=== PATIENT | female | born 1990 | race Caucasian/White ===

== ENCOUNTER 2020-12-30 08:24 | Emergency (ER) | payer OTHER ==
[2020-12-30 09:58] LABS: BASOPHIL 0.8 % (0-2); EOSINOPHIL 5.9 % (0-5); HGB 13.1 g/dl (12.5-16.0); LYMPHOCYTE 53.8 % (15-48); MCH 30.5 pg (25.0-31.0); MCHC 32.8 g/dL (32.0-36.0); MCV 93.2 fL (78.0-100.0); MONOCYTE 10.3 % (0-12); NRBC 0; PLT 189 K/uL (150-400); RBC 4.29 M/uL (4.20-5.40); RDW 12.6 % (11.5-14.0); WBC 5.1 K/uL (4.0-10.5)
[2020-12-30 10:37] LABS: ALBUMIN 3.7 g/dL (3.4-5.0); ALKALINE PHOSHATASE 37 U/L (46-116); ALT 19 U/L (14-59); AST 11 U/L (15-37); BILIRUBIN - TOTAL 0.6 mg/dL (0.2-1.0); BUN 14 mg/dL (7-18); BUN/CREAT RATIO (CALC) 20.3 RATIO; C-REACTIVE PROTEIN <0.20 mg/dL (<=0.90); CHLORIDE 106 mmol/L (98-107); CO2 (BICARBONATE) 26 mmol/L (21-32); CREATININE 0.69 mg/dL (0.51-0.95); GLOBULIN (CALCULATION) 3.5 g/dL; GLUCOSE 88 mg/dL (74-106); POTASSIUM 3.8 mmol/L (3.5-5.1); TOTAL PROTEIN 7.2 g/dL (6.4-8.2)
[2020-12-30] MEDS ORDERED: PREDNISONE20 MG PO (11:56)
[2020-12-30] MEDS ORDERED: PERCOCET 7.5/321 TAB PO (11:56)
== END 2020-12-30 12:16 | disposition home or self-care (01) ==
LOC: FER 08:24
PROVIDERS: Emergency Medicine
DX: M51.16 Intervertebral disc disorders with radiculopathy, lumbar region (principal); M47.26 Other spondylosis with radiculopathy, lumbar region
CPT/HCPCS: 36415; 72131; 80053; 84703; 85025; 86140; J1100; J1170; J1885; J2405